=== PATIENT | female | born 1975 | race Caucasian/White ===

== ENCOUNTER 2018-03-20 13:39 | Emergency (ER) | payer MEDICAID, OTHER ==
[~2018-03-20] VITALS: Ht 177.8 cm; Wt 72.2 kg
[2018-03-20 15:19] LABS: RAPID INFLUENZA A Negative (Negative); RAPID INFLUENZA B Negative (Negative)
[2018-03-20 15:54] VITALS: BP 115/70
== END 2018-03-20 15:53 | disposition other institution (70) ==
LOC: ED 14:56
DX: R06.00 Dyspnea, unspecified (principal); F17.200 Nicotine dependence, unspecified, uncomplicated
CPT/HCPCS: 71046; 87400; 93005; 99285

== ENCOUNTER 2019-05-06 11:47 | Emergency (ER) | payer BC ==
[~2019-05-06] VITALS: Ht 177.8 cm; Wt 68.8 kg
[~2019-05-06 11:47] MED LIST: LEVO25TA4 PO
[2019-05-06 11:50] VITALS: BP 125/74
== END 2019-05-06 13:25 | disposition home or self-care (01) ==
LOC: ED 12:50
DX: M25.562 Pain in left knee (principal)
CPT/HCPCS: 29505; 99283

== ENCOUNTER 2019-09-28 19:41 | Inpatient (IN) | payer BC ==
[~2019-09-28] VITALS: Ht 177.8 cm; Wt 79.7 kg
[2019-09-28] MEDS ORDERED: ONDANSETRON 2MG/ML, 2ML ONE (19:52)
[2019-09-28] MEDS ORDERED: MORPHINE SULFATE 4 MG/ML, 1ML ONE ×3 (19:53→21:43)
--- NOTE | 2019-09-28 19:54 | NUR ---
THIS IS A 44Y F BIB EMS FROM [facility] FOR VOMITING AND ABD PAIN STARTING THIS AFTERNOON. PT REPORTS SI WITH PLAN AND EXCESSIVE ETOH CONSUMPTION YESTERDAY. PT CONNECTED TO MONITORING, VSS. PT BELONGINGS PLACED IN TWO BAGS AND LABELED, PLACED ON TOP SHELF OF BELONGINGS LOCKER.
[2019-09-28] MEDS: MORPHINE SULFATE 4 MG/ML, 1ML IVPush PRN ×2 (19:59→20:15)
--- NOTE | 2019-09-28 20:15 | NUR ---
PT CONTINUES TO BE IN GREAT DEAL OF PAIN, PT GIVEN 2ND DOSE OF MORPHINE PER ERP TO MANAGE PAIN.
--- NOTE | 2019-09-28 20:20 | NUR ---
PT UP OUT OF BED DRINKING WATER FROM SINK, PT EDUCATED AGAIN THAT SHE IS NOT TO BE DRINKING OR EATING ANYTHING AT THIS TIME PER ERP.
--- NOTE | 2019-09-28 20:22 | NUR ---
PT NOW VOMITING AGAIN, ERP UPDATED NO FURTHER ORDERS AT THIS TIME
[2019-09-28] MEDS ORDERED: SODIUM CHLORIDE FLUSH 10ML SYR IVF ONE (20:30)
[2019-09-28] MEDS ORDERED: ONDANSETRON 2MG/ML, 2ML IVPush ONE (20:30)
[2019-09-28 20:51] LABS: MEAN CORPUSCULAR HEMOGLOBIN 30.3 pg (27.0-34.8); MEAN CORPUSCULAR HGB CONC 33.4 g/dL (32.4-35.8); MEAN CORPUSCULAR VOLUME 90.7 fL (80-100); MEAN PLATELET VOLUME 8.3 fL (7.4-10.4); PLATELET COUNT 298 x10^3/uL (130-400); RED BLOOD COUNT 4.66 x10^6/uL (3.82-5.3); RED CELL DISTRIBUTION WIDTH 12.9 % (9.6-15.2)
[2019-09-28 20:59] LABS: ALANINE AMINOTRANSFERASE 30 U/L (12-78); ALBUMIN 3.7 g/dL (3.4-5.0); ANION GAP 13 mmol/L (5-15); CALCIUM 9.2 mg/dL (8.5-10.1); CHLORIDE 109 mmol/L (98-107); CREATININE 0.93 mg/dL (0.55-1.02)
[2019-09-28 21:04] LABS: ALKALINE PHOSPHATASE 61 U/L (45-117); BILIRUBIN,TOTAL 0.5 mg/dL (0.2-1.0); TOTAL PROTEIN 7.7 g/dL (6.4-8.2)
[2019-09-28 21:28] LABS: FREE T4 (FREE THYROXINE) 1.62 ng/dL (0.76-1.46)
[2019-09-28] MEDS ORDERED: SODIUM CHLORIDE 0.9% 1,000ML IVBOLUS ONE (21:30)
[2019-09-28 21:35] LABS: BASOPHILS # (AUTO) 0.04 x10^3/uL (0-0.1); BASOPHILS % (AUTO) 0 % (0-1); EOSINOPHILS % (AUTO) 0 % (1-7); LYMPHOCYTES # (AUTO) 0.66 x10^3/uL (1-3.4); LYMPHOCYTES % (AUTO) 3 % (22-44); MD SCAN; MONOCYTES # (AUTO) 0.78 x10^3/uL (0.2-0.8); MONOCYTES % (AUTO) 4 % (2-9); NEUTROPHILS # (AUTO) 18.26 x10^3/uL (1.8-6.8); NEUTROPHILS % (AUTO) 93 % (42-75)
--- NOTE | 2019-09-28 21:47 | NUR ---
PT CONTINUES TO COMPLAIN OF PAIN ERP UPDATED ADDITIONAL ORDER FOR MORPHINE AT THIS TIME. PT MEDICATED PER MAR
[2019-09-28] MEDS ORDERED: MAGNESIUM SULFATE 1 GM, THIAMINE 100 MG, FOLIC ACID 1 MG, MVI ADULT 10 ML in SODIUM CHL... IV ONE (22:00)
[2019-09-28] MEDS ORDERED: MORPHINE SULFATE 4 MG/ML, 1ML IVPush ONE (22:00)
[2019-09-28] MEDS ORDERED: HALOPERIDOL 5 MG/ML ONE (22:24)
--- NOTE | 2019-09-28 22:25 | NUR ---
PT MEDICATED PER MAR
[2019-09-28] MEDS ORDERED: SODIUM CHLORIDE 0.9% 1,000 ML IV ONE (22:30)
[2019-09-28] MEDS ORDERED: CEFTRIAXONE PMX 1GM/50ML 50 ML IV ONE (22:30)
[2019-09-28] MEDS ORDERED: HALOPERIDOL 5 MG/ML IV ONE (22:30)
--- NOTE | 2019-09-28 22:43 | NUR ---
PT NOW MORE CALM AND COOPERATIVE, NO LONGER WRITHING IN PAIN. PT ALSO AGREES TO NO LONGER DRINK WATER FROM THE SINK. STRAIGHT CATH PERFORMED WITHOUT DIFFICULTY. PT RESTING ON GURNEY AT THIS TIME. PT EDUCATED ON NEED FOR NG TUBE
[2019-09-28 22:59] LABS: MICROSCOPIC NOT IND
--- NOTE | 2019-09-28 23:00 | NUR ---
NG TUBE PLACED SUCCESSFULLY FIRST ATTEMPT, CONFIRMED BY AUSCULTATION. PT STS SHE CANNOT DO THIS. ERP TO BE UPDATED
[2019-09-28 23:02] LABS: CULTURE INDICATED? NO
--- NOTE | 2019-09-28 23:05 | NUR ---
PT REMOVED NG TUBE PRIOR TO MD RETURNING TO PT ROOM
[2019-09-28 23:09] LABS: AMPHETAMINE SCREEN, URINE Negative (Negative); BARBITURATE SCREEN, URINE Negative (Negative); BENZODIAZEPINE SCREEN, URINE Positive (Negative); CANNABINOID SCREEN, URINE Positive (Negative); COCAINE SCREEN, URINE Negative (Negative); METHADONE SCREEN, URINE Negative (Negative); OPIATE SCREEN, URINE Positive (Negative)
[2019-09-28] MEDS ORDERED: CEFTRIAXONE PMX 1GM/50ML 50 ML ONE (23:09)
[2019-09-28] MEDS ORDERED: HYDROmorphone 1 MG/ML, 1ML INJ ONE (23:09)
[2019-09-28] MEDS ORDERED: OMNIPAQUE 350 MG/ML, 100ML BOTTLE ONE (23:15)
[2019-09-28] MEDS ORDERED: METRONIDAZOLE PMX 500MG/100ML 100 ML ONE (23:23)
[2019-09-28] MEDS ORDERED: TRAZODONE (23:26)
[2019-09-28] MEDS ORDERED: PAXIL (23:26)
[2019-09-28] MEDS ORDERED: METRONIDAZOLE PMX 500MG/100ML 100 ML IV ONE (23:30)
[2019-09-28] MEDS ORDERED: HYDROmorphone 1 MG/ML, 1ML INJ IV ONE (23:30)
--- NOTE | 2019-09-28 23:46 | NUR ---
ABX HUNG ADDITONAL PIV STARTED. PT TOLERATED WELL AND IS AGREEABLE TO POC ASIDE FROM NG TUBE
--- NOTE | 2019-09-29 00:07 | NUR ---
HOSPTIALIST AT BEDSIDE TO ADMIT/ ASSESS PT
--- NOTE | 2019-09-29 00:29 | NUR ---
Pt found out of bed and fiddling with iv cath on left arm. Instructed to please leave alone for her safety. Pt helped back into bed. Lights dimmed and curtain partially closed for privacy. Pt aggreable to stay in bed.
[2019-09-29] MEDS ORDERED: DOCUSATE 100 MG CAPSULE PO PRN (00:30)
[2019-09-29] MEDS ORDERED: ACETAMINOPHEN 325 MG TABLET PO PRN (00:30)
[2019-09-29] MEDS ORDERED: BISACODYL 10 MG SUPP PR PRN (00:30)
[2019-09-29] MEDS ORDERED: ENALAPRILAT 1.25 MG/ML, 2ML IVPush PRN (00:30)
[2019-09-29] MEDS ORDERED: ONDANSETRON ODT 4 MG PO PRN (00:30)
[2019-09-29] MEDS ORDERED: LABETALOL 5MG/ML, 20ML IVPush PRN (00:30)
[2019-09-29] MEDS ORDERED: POLYETHYLENE GLYCOL 17 GM PACKET PO PRN (00:30)
--- NOTE | 2019-09-29 01:06 | NUR ---
REPORT TO RANJAN VEGA, ALL QUESTIONS ADDRESSED PT READY FOR TRANSPORT AT THIS TIME.
[2019-09-29 01:17] VITALS: BP 106/66
[2019-09-29] MEDS: LEVOTHYROXINE MC SCH ×2 (02:30→07:15)
[2019-09-29 04:43] LABS: MEAN CORPUSCULAR HEMOGLOBIN 30.3 pg (27.0-34.8); MEAN CORPUSCULAR HGB CONC 32.8 g/dL (32.4-35.8); MEAN CORPUSCULAR VOLUME 92.1 fL (80-100); MEAN PLATELET VOLUME 8.8 fL (7.4-10.4); PLATELET COUNT 220 x10^3/uL (130-400); RED BLOOD COUNT 4.15 x10^6/uL (3.82-5.3); RED CELL DISTRIBUTION WIDTH 12.8 % (9.6-15.2)
[2019-09-29 04:50] LABS: ANION GAP 5 mmol/L (5-15); CALCIUM 7.8 mg/dL (8.5-10.1); CHLORIDE 112 mmol/L (98-107); CREATININE 0.68 mg/dL (0.55-1.02)
[2019-09-29 05:50] LABS: BASOPHILS # (AUTO) 0.03 x10^3/uL (0-0.1); BASOPHILS % (AUTO) 0 % (0-1); EOSINOPHILS # (AUTO) 0.01 x10^3/uL (0-0.4); EOSINOPHILS % (AUTO) 0 % (1-7); LYMPHOCYTES # (AUTO) 1.29 x10^3/uL (1-3.4); LYMPHOCYTES % (AUTO) 9 % (22-44); MD SCAN; MONOCYTES % (AUTO) 7 % (2-9); NEUTROPHILS # (AUTO) 11.86 x10^3/uL (1.8-6.8); NEUTROPHILS % (AUTO) 84 % (42-75)
[2019-09-29] MEDS: NS + 20MEQ KCL 1,000 ML IV SCH ×2 (06:24→15:41)
[2019-09-29] MEDS: LORazepam 2 MG/ML, 1ML IVPush PRN ×4 (06:24→19:43)
[2019-09-29] MEDS: ENOXAPARIN 40 MG/0.4 ML SQ SCH (06:29)
[2019-09-29 06:53] VITALS: BP 108/69
[2019-09-29] MEDS ORDERED: LEVO200T5 PO (07:03)
[2019-09-29] MEDS: PAROXETINE 20 MG TABLET PO SCH (08:04)
[2019-09-29] MEDS: METRONIDAZOLE PMX 500MG/100ML 100 ML IV SCH ×3 (08:04→23:58)
[2019-09-29] MEDS: NICOTINE 7 MG/24 HR PATCH.TD24 TD SCH (08:05)
[2019-09-29] MEDS ORDERED: FAMOTIDINE 20 MG/2 ML IVPush SCH (09:00)
[2019-09-29] MEDS ORDERED: FAMOTIDINE 20 MG TABLET PO SCH (09:00)
[2019-09-29] MEDS ORDERED: LEVOTHYROXINE 25 MCG TABLET PO SCH (09:00)
[2019-09-29 12:37] VITALS: BP 123/80
[2019-09-29] MEDS: ONDANSETRON 2MG/ML, 2ML IVPush PRN (17:25)
[2019-09-29 18:29] VITALS: BP 127/84
[2019-09-29 19:27] LABS: CLOSTRIDIUM DIFFICILE ANTIGEN NEGATIVE; CLOSTRIDIUM DIFFICILE TOXIN NEGATIVE (Negative)
[2019-09-29] MEDS: KETOROLAC 30 MG/1 ML IV PRN (20:30)
[2019-09-29] MEDS: FAMOTIDINE 20 MG TABLET PO SCH (20:30)
[2019-09-29] MEDS: TRAZODONE 50MG TABLET PO SCH (20:30)
[2019-09-29] MEDS: CEFTRIAXONE PMX 1GM/50ML 50 ML IV SCH (22:47)
[2019-09-29] MEDS: THIAMINE 200 MG, FOLIC ACID 1 MG, MVI ADULT 10 ML in SODIUM CHLORIDE 0.9% 1,000 ML IV SCH (22:49)
[2019-09-30 01:07] VITALS: BP 121/71
[2019-09-30] MEDS: LEVOTHYROXINE 200 MCG TABLET PO SCH (04:51)
[2019-09-30] MEDS: LORazepam 2 MG/ML, 1ML IVPush PRN ×5 (04:52→21:50)
[2019-09-30] MEDS: LEVOTHYROXINE 25 MCG TABLET PO SCH (04:52)
[2019-09-30 05:17] LABS: BASOPHILS # (AUTO) 0.05 x10^3/uL (0-0.1); BASOPHILS % (AUTO) 1 % (0-1); EOSINOPHILS # (AUTO) 0.07 x10^3/uL (0-0.4); EOSINOPHILS % (AUTO) 1 % (1-7); LYMPHOCYTES # (AUTO) 2.12 x10^3/uL (1-3.4); LYMPHOCYTES % (AUTO) 35 % (22-44); MD NO; MEAN CORPUSCULAR HGB CONC 33.5 g/dL (32.4-35.8); MEAN CORPUSCULAR VOLUME 92.5 fL (80-100); MONOCYTES # (AUTO) 0.59 x10^3/uL (0.2-0.8); MONOCYTES % (AUTO) 10 % (2-9); NEUTROPHILS % (AUTO) 54 % (42-75); PLATELET COUNT 199 x10^3/uL (130-400); RED BLOOD COUNT 3.84 x10^6/uL (3.82-5.3); RED CELL DISTRIBUTION WIDTH 12.9 % (9.6-15.2)
[2019-09-30 05:29] LABS: ANION GAP 5 mmol/L (5-15); CALCIUM 7.9 mg/dL (8.5-10.1); CHLORIDE 116 mmol/L (98-107); CREATININE 0.59 mg/dL (0.55-1.02)
[2019-09-30] MEDS ORDERED: LEVOTHYROXINE 200 MCG TABLET PO SCH (06:00)
[2019-09-30] MEDS: NS + 20MEQ KCL 1,000 ML IV SCH (06:48)
[2019-09-30] MEDS: ONDANSETRON 2MG/ML, 2ML IVPush PRN ×2 (06:50→18:14)
[2019-09-30 06:53] VITALS: BP 120/80
[2019-09-30] MEDS: PAROXETINE 20 MG TABLET PO SCH (07:31)
[2019-09-30] MEDS: ENOXAPARIN 40 MG/0.4 ML SQ SCH (07:32)
[2019-09-30] MEDS: NICOTINE 7 MG/24 HR PATCH.TD24 TD SCH (07:32)
[2019-09-30] MEDS: FAMOTIDINE 20 MG TABLET PO SCH ×2 (07:32→20:49)
[2019-09-30] MEDS: METRONIDAZOLE PMX 500MG/100ML 100 ML IV SCH ×2 (07:32→15:54)
[2019-09-30] MEDS: KETOROLAC 30 MG/1 ML IV PRN ×2 (08:20→18:14)
[2019-09-30] MEDS: POTASSIUM CHLORIDE 40 MEQ in LACTATED RINGERS 1,000 ML IV SCH (12:33)
[2019-09-30 13:11] VITALS: BP 130/87
[2019-09-30 19:24] VITALS: BP 124/80
[2019-09-30] MEDS: TRAZODONE 50MG TABLET PO SCH (20:48)
[2019-09-30] MEDS: THIAMINE 200 MG, FOLIC ACID 1 MG, MVI ADULT 10 ML in SODIUM CHLORIDE 0.9% 1,000 ML IV SCH (21:50)
[2019-09-30] MEDS: CEFTRIAXONE PMX 1GM/50ML 50 ML IV SCH (23:23)
[2019-10-01] MEDS: METRONIDAZOLE PMX 500MG/100ML 100 ML IV SCH ×2 (00:27→08:40)
[2019-10-01 02:05] VITALS: BP 127/89
[2019-10-01] MEDS: LORazepam 2 MG/ML, 1ML IVPush PRN ×2 (04:15→08:41)
[2019-10-01 04:32] LABS: BASOPHILS # (AUTO) 0.03 x10^3/uL (0-0.1); BASOPHILS % (AUTO) 1 % (0-1); EOSINOPHILS # (AUTO) 0.16 x10^3/uL (0-0.4); EOSINOPHILS % (AUTO) 3 % (1-7); LYMPHOCYTES # (AUTO) 2.24 x10^3/uL (1-3.4); LYMPHOCYTES % (AUTO) 37 % (22-44); MD NO; MEAN CORPUSCULAR HEMOGLOBIN 30.5 pg (27.0-34.8); MEAN CORPUSCULAR HGB CONC 33.2 g/dL (32.4-35.8); MEAN CORPUSCULAR VOLUME 91.9 fL (80-100); MEAN PLATELET VOLUME 8.5 fL (7.4-10.4); MONOCYTES # (AUTO) 0.52 x10^3/uL (0.2-0.8); MONOCYTES % (AUTO) 9 % (2-9); NEUTROPHILS # (AUTO) 3.09 x10^3/uL (1.8-6.8); NEUTROPHILS % (AUTO) 51 % (42-75); PLATELET COUNT 201 x10^3/uL (130-400); RED BLOOD COUNT 3.82 x10^6/uL (3.82-5.3); RED CELL DISTRIBUTION WIDTH 12.7 % (9.6-15.2)
[2019-10-01 04:42] LABS: ANION GAP 5 mmol/L (5-15); CALCIUM 7.9 mg/dL (8.5-10.1); CHLORIDE 112 mmol/L (98-107); CREATININE 0.58 mg/dL (0.55-1.02)
[2019-10-01] MEDS: LEVOTHYROXINE 25 MCG TABLET PO SCH (06:26)
[2019-10-01] MEDS: LEVOTHYROXINE 200 MCG TABLET PO SCH (06:26)
[2019-10-01 07:22] VITALS: BP 126/90
[2019-10-01] MEDS ORDERED: MAGNESIUM SULFATE PMX 2GM/50ML 50 ML IV ONE (08:30)
[2019-10-01] MEDS: PAROXETINE 20 MG TABLET PO SCH (08:40)
[2019-10-01] MEDS: FAMOTIDINE 20 MG TABLET PO SCH (08:41)
[2019-10-01] MEDS: ENOXAPARIN 40 MG/0.4 ML SQ SCH (08:41)
[2019-10-01] MEDS: NICOTINE 7 MG/24 HR PATCH.TD24 TD SCH (08:41)
[2019-10-01] MEDS: POTASSIUM CHLORIDE 40 MEQ in LACTATED RINGERS 1,000 ML IV SCH (11:40)
[2019-10-01] MEDS ORDERED: METR500T PO (11:46)
[2019-10-01] MEDS ORDERED: CEFD300C37 PO (11:46)
== END 2019-10-01 15:58 | disposition home or self-care (01) | DRG 872 ==
LOC: ED 20:15 → EDIP 23:31 → 3N 09-29 01:13
PROVIDERS: ADMIT Internal Medicine; ATTEND Internal Medicine
PROC: 0T9B70Z Drainage of Bladder with Drainage Device, Via Natural or Artificial Opening (ICD-10-PCS; principal; 2019-09-28)
DX: A41.9 Sepsis, unspecified organism (principal); A09 Infectious gastroenteritis and colitis, unspecified; R65.20 Severe sepsis without septic shock; K31.89 Other diseases of stomach and duodenum; F17.210 Nicotine dependence, cigarettes, uncomplicated; E87.6 Hypokalemia; E83.42 Hypomagnesemia; F19.10 Other psychoactive substance abuse, uncomplicated; F43.22 Adjustment disorder with anxiety; Z85.850 Personal history of malignant neoplasm of thyroid; Z79.899 Other long term (current) drug therapy
CPT/HCPCS: 36415; 84145; 96365; 96366; 96368; 96375; 99291; J3490; 71045; 74177; 80048; 80053; 80307; 81003; 83605; 83690; 83735; 84100; 84439; 84443; 84481; 84703; 85025; 87040; 87324; G0378; J0696; J1650; J1885; J2405; J3411; J3475; J3480; Q9967; J1630; J2060; J2270; J7030; J7120

== ENCOUNTER 2020-01-02 07:19 | Day surgery (SDC) | payer BC ==
[~2020-01-02] VITALS: Ht 177.8 cm; Wt 75.9 kg
[~2020-01-02 07:19] MED LIST changes: +CEFD300C37 PO; +LEVO100T5 PO; +LEVO200T5 PO; +LIDOCAINE 1%-EPI 1:100K, 20ML ONE; +METR500T PO; +MULT-449 PO; +PARO40TA3 PO; +PAXIL; +ROPIvacaine/PF 0.5%, 30 ML ONE; +TRAZ50TA66 PO; +TRAZODONE; +Vitamin D PO
[2020-01-02 07:48] VITALS: BP 117/80
[2020-01-02] MEDS ORDERED: LACTATED RINGERS 1,000 ML IV SCH (07:49)
[2020-01-02] MEDS ORDERED: CHLORHEXIDINE 15 ML UDC MM ONE (08:00)
[2020-01-02 08:21] LABS: HCG UR SG 1.025 (1.003-1.030)
[2020-01-02] MEDS ORDERED: FENTANYL PF 100 MCG/2ML ONE ×3 (09:25→11:27)
[2020-01-02] MEDS ORDERED: MIDAZOLAM 1 MG/ML, 2ML ONE (09:25)
[2020-01-02] MEDS ORDERED: CEFAZOLIN 1,000 MG ONE (09:27)
[2020-01-02] MEDS ORDERED: SUCCINYLCHOLINE 20 MG/ML, 10ML ONE (09:27)
[2020-01-02] MEDS ORDERED: KETOROLAC 30 MG/1 ML ONE (09:27)
[2020-01-02] MEDS ORDERED: GLYCOPYRROLATE 0.2MG/1ML, 5ML ONE (09:27)
[2020-01-02] MEDS ORDERED: ONDANSETRON 2MG/ML, 2ML ONE ×2 (09:27)
[2020-01-02] MEDS ORDERED: DEXAMETHASONE 4 MG/ML, 1ML ONE (09:27)
[2020-01-02] MEDS ORDERED: PROPOFOL 10 MG/ML, 20ML ONE (09:27)
[2020-01-02] MEDS ORDERED: OXYcodone 5 MG/5 ML ORAL.SOL UDC PO PRN (10:00)
[2020-01-02] MEDS ORDERED: HYDROmorphone 1 MG/ML, 1ML INJ IVPush PRN (10:00)
[2020-01-02] MEDS ORDERED: ACETAMINOPHEN 325 MG TABLET PO PRN (10:00)
[2020-01-02] MEDS ORDERED: ONDANSETRON 2MG/ML, 2ML IVPush PRN (10:00)
[2020-01-02] MEDS ORDERED: ACETAMINOPHEN 650 MG/20.3 ML UDC ONE (11:27)
[2020-01-02] MEDS ORDERED: OXYcodone 5 MG/5 ML ORAL.SOL UDC ONE (11:27)
[2020-01-02] MEDS: FENTANYL PF 100 MCG/2ML IV PRN ×3 (11:31→11:50)
== END 2020-01-02 13:00 | disposition home or self-care (01) ==
LOC: OUT 07:19
PROVIDERS: ATTEND Orthopaedic Surgery
DX: S83.282A Other tear of lateral meniscus, current injury, left knee, initial encounter (principal); Z11.59 Encounter for screening for other viral diseases; E03.9 Hypothyroidism, unspecified; F17.200 Nicotine dependence, unspecified, uncomplicated; Z79.890 Hormone replacement therapy; Z79.899 Other long term (current) drug therapy; X58.XXXA Exposure to other specified factors, initial encounter; Y93.89 Activity, other specified; Y92.89 Other specified places as the place of occurrence of the external cause; Y99.8 Other external cause status
CPT/HCPCS: 29882; 36415; 81025; 87635; J0330; J0690; J1100; J1885; J2250; J2405; J2704; J2795; J3010; J3490; J7120

== ENCOUNTER 2020-04-13 10:00 | Emergency (ER) | payer BC ==
[~2020-04-13] VITALS: Ht 177.8 cm; Wt 75.0 kg
[~2020-04-13 10:00] MED LIST changes: -LIDOCAINE 1%-EPI 1:100K, 20ML ONE; -ROPIvacaine/PF 0.5%, 30 ML ONE
--- NOTE | 2020-04-13 10:14 | NUR ---
PT TO ROOM AT THIS TIME.
--- NOTE | 2020-04-13 10:37 | NUR ---
PT RECENTLY HAD A POSITIVE COVID TEST ON TUESDAY. PT STATES SHE HAS BEEN FEELING WEAK, TIRED, SOB, COUGH, CHILLS. PT IS NOT ON OXYGEN. PT IS RESTING IN [facility]. LAB IN WITH PT AT THIS TIME.
[2020-04-13 10:48] LABS: BASOPHILS % (AUTO) 0 % (0-1); EOSINOPHILS % (AUTO) 1 % (1-7); LYMPHOCYTES % (AUTO) 30 % (22-44); MEAN CORPUSCULAR HEMOGLOBIN 30.6 pg (27.0-34.8); MEAN CORPUSCULAR HGB CONC 33.1 g/dL (32.4-35.8); MEAN PLATELET VOLUME 8.4 fL (7.4-10.4); MONOCYTES % (AUTO) 14 % (2-9); NEUTROPHILS % (AUTO) 54 % (42-75); PLATELET COUNT 229 x10^3/uL (130-400); RED BLOOD COUNT 4.79 x10^6/uL (3.82-5.3)
[2020-04-13 10:59] LABS: ALBUMIN 3.5 g/dL (3.4-5.0); ANION GAP 6 mmol/L (5-15); CALCIUM 8.7 mg/dL (8.5-10.1); CHLORIDE 113 mmol/L (98-107); CREATININE 0.73 mg/dL (0.55-1.02)
[2020-04-13 11:03] LABS: TROPONIN I < 0.015 ng/mL (0.000-0.045)
[2020-04-13 11:09] LABS: MD SCAN
[2020-04-13 11:54] VITALS: BP 108/74
--- NOTE | 2020-04-13 11:54 | NUR ---
REPORT LISA'AQUILES FROM MARVIN VEGA. ERP AT FOR [facility]. Addendum: 04/13/20 at 1207 by DOUG ABOVE NOTE WRITTEN BY CHAD TOWNSEND RN.
--- NOTE | 2020-04-13 12:07 | NUR ---
D/C INSTRUCTIONS, MEDS & F/U APPT RV'WD WITH PT, SHE VERBALIZES UNDERSTANDING. RX GIVEN X2. VIRI COVID QUARANTINE WITH PT. PT AMBULATED OUT OF ED WITHOUT DIFFICULTY.
== END 2020-04-13 12:07 | disposition home or self-care (01) ==
LOC: ED 12:05
DX: J20.8 Acute bronchitis due to other specified organisms (principal); R07.89 Other chest pain; Z87.891 Personal history of nicotine dependence
CPT/HCPCS: 36415; 71045; 80048; 82040; 84484; 84703; 85025; 85379; 93005; 99285